=== PATIENT | female | born 1960 | race Caucasian/White ===

== ENCOUNTER 2017-10-13 04:22 | Observation (INO) | payer BC ==
[2017-10-13] VITALS (8 sets, daily range): BP systolic 133–169; BP diastolic 63–81; PULSE 61–80; RESP 16–18; TEMP 97.4–98.5; O2SAT 96–98
[~2017-10-13] VITALS: Ht 165.1 cm; Wt 75.6 kg
[2017-10-13] MEDS ORDERED: DOXY100C PO (04:48)
[2017-10-13] MEDS ORDERED: [UNRECOGNIZED DRUG - OTHER] SQ (04:48)
[2017-10-13] MEDS ORDERED: ESOM1CAP16 PO (04:48)
[2017-10-13] MEDS ORDERED: NOVOLOGP2 SQ (04:48)
[2017-10-13] MEDS ORDERED: SODIUM CHLOR 0.9% 1000 ML INJ 1,000 ML IV SCH (05:15)
[2017-10-13] MEDS ORDERED: SUCRALFATE 1 GM/10 ML CUP PO ONE (05:15)
[2017-10-13] MEDS ORDERED: SODIUM CHLORIDE 0.9% FLUSH 10 ML FLUSH IVF PRN (05:15)
[2017-10-13] MEDS ORDERED: NITROGLYCERIN 0.4 MG SL 25 TABS/BTL SL ONE ×2 (05:15→06:15)
[2017-10-13] MEDS ORDERED: METOCLOPRAMIDE HCL 10 MG/2 ML VIAL IV PUSH ONE (05:15)
[2017-10-13 05:21] LABS: AUTOMATED NEUTROPHIL # 3.6 TH/MM3 (1.8-7.7); BASOPHIL # 0.1 TH/MM3 (0-0.2); BASOPHIL % 0.8 % (0.0-2.0); EOSINOPHIL # 0.2 TH/MM3 (0-0.4); EOSINOPHIL % 3.4 % (0.0-4.0); HEMATOCRIT 41.6 % (35.0-46.0); LYMPH % 29.9 % (9.0-44.0); LYMPHOCYTE # 1.9 TH/MM3 (1.0-4.8); MEAN CELL VOLUME 90.4 FL (80.0-100.0); MEAN CORPUSCULAR HEMOGLOBIN 30.4 PG (27.0-34.0); MEAN CORPUSCULAR HGB CONC 33.7 % (32.0-36.0); MEAN PLATELET VOLUME 8.6 FL (7.0-11.0); MONO % 9.4 % (0.0-8.0); MONOCYTE # 0.6 TH/MM3 (0-0.9); NEUT % 56.5 % (16.0-70.0); PLATELET COUNT 214 TH/MM3 (150-450); RED CELL DISTRIBUTION WIDTH 11.7 % (11.6-17.2); WHITE BLOOD COUNT 6.4 TH/MM3 (4.0-11.0)
[2017-10-13 05:28] LABS: CHLORIDE 104 MEQ/L (98-107); SODIUM (NA) 137 MEQ/L (136-145)
[2017-10-13 05:32] LABS: ALBUMIN 3.6 GM/DL (3.4-5.0); BICARBONATE 27.9 MEQ/L (21.0-32.0)
[2017-10-13 05:33] LABS: BLOOD UREA NITROGEN 20 MG/DL (7-18); GLUCOSE,RANDOM 236 MG/DL (74-106); INTERNATIONAL NORMALIZED RATIO 0.9 RATIO; PROTHROMBIN TIME - PATIENT 9.6 SEC (9.8-11.6)
[2017-10-13 05:35] LABS: ALT (GPT) 14 U/L (10-53); AST (GOT) 12 U/L (15-37)
[2017-10-13 05:36] LABS: CREATININE 0.88 MG/DL (0.50-1.00); GLOMERULAR FILTRATION RATE 66 ML/MIN (>89)
[2017-10-13 05:37] LABS: TOTAL BILIRUBIN ADULT 0.3 MG/DL (0.2-1.0)
[2017-10-13 05:38] LABS: ALKALINE PHOSPHATASE 107 U/L (45-117)
[2017-10-13 05:41] LABS: TROPONIN I LESS THAN 0.02 NG/ML (0.02-0.05)
--- NOTE | 2017-10-13 05:42 | PD ---
HPI Chief Complaint: Foreign Body Time Seen by Provider: 05:04 Travel History International Travel<30 days: No Contact w/Intl Traveler<30days: No Traveled to known affect area: No History of Present Illness HPI 57-year-old female presents to the emergency department for component of esophageal spasm and retrosternal chest pain. Patient states she has history of GERD and esophageal spasm as well as history of diabetes. Patient states blood sugars have not been well controlled over the last few weeks she has been changed over surgery Triseba for diabetic control. Patient is concerned her medications may be inducing her symptoms especially as she was recently started on tetracycline for possible toe infection and prior history of MRSA/staph infections. Patient denies fever chills. Patient has had nausea without vomiting. Patient did take antacid prior to arrival to the emergency department. PFSH Past Medical History Narrative Medical Type 1 diabetes gerd cholecystectomy tonsillectomy hiatal hernia; no tobacco use; nursing notes reviewed Diabetes: Yes (TYPE 1) Patient Takes Glucophage: No Diminished Hearing: No Hiatal Hernia: Yes Immunizations Current: Yes Tetanus Vaccination: < 5 Years Influenza Vaccination: Yes ?: Not Menopausal: Yes Past Surgical History Section: Yes Cholecystectomy: Yes Tonsillectomy: Yes Social History Alcohol Use: No Tobacco Use: No Substance Use: No Allergies-Medications (Allergen,Severity, Reaction): Coded Allergies: Penicillins (Verified Allergy, Severe, Hives, 10/13/17) Sulfa (Sulfonamide Antibiotics) (Verified Allergy, Severe, Hives, 10/13/17) ethinyl estradiol (Verified Allergy, Severe, Hives, 10/13/17) norethindrone acetate (Verified Allergy, Severe, Hives, 10/13/17) ofloxacin (Verified Allergy, Severe, Hives, 10/13/17) Reported Meds & Prescriptions Reported Meds & Active Scripts Active Reported Esomeprazole DR 40 Mg Capdr 40 Mg PO DAILY Novolog Inj (Insulin Aspart) 1,000 Unit/10 Ml Vial 0 SQ DIRECTED Sliding Scale as directed. [Trasheba] 19 Units SQ DAILY Doxycycline Hyclate 100 Mg Cap 100 Mg PO BID Review of Systems Except as stated in HPI: all other systems reviewed are Neg General / Constitutional: No: Fever HENT: No: Congestion Cardiovascular: Positive: Chest Pain or Discomfort Respiratory: No: Shortness of Breath Gastrointestinal: Positive: Nausea, No: Vomiting, Abdominal Pain Genitourinary: No: Dysuria, Flank Pain Musculoskeletal: No: Myalgias, Arthralgias, Edema Skin: No Rash Neurologic: No: Weakness, Dizziness, Syncope Psychiatric: Positive: Anxiety Hematologic/Lymphatic: No: Lymph Node Enlargement Physical Exam Narrative GENERAL: Well-developed well-nourished no acute distress no respiratory distress SKIN: Warm and dry. HEAD: Normocephalic. EYES: No scleral icterus. No injection or drainage. NECK: Supple, trachea midline. No JVD or lymphadenopathy. CARDIOVASCULAR: Regular rate and rhythm without murmurs, gallops, or rubs. RESPIRATORY: Breath sounds equal bilaterally. No accessory muscle use. GASTROINTESTINAL: Abdomen soft, non-tender, nondistended. MUSCULOSKELETAL: No cyanosis, or edema. BACK: Nontender without obvious deformity. No CVA tenderness. Data Data Last Documented VS Vital Signs Date Time Temp Pulse Resp B/P (MAP) Pulse Ox O2 Delivery O2 Flow Rate FiO2 10/13/17 06:19 66 16 144/72 (96) 97 Room Air 10/13/17 04:27 98.5 Orders Orders Electrocardiogram (10/13/17 05:04) Ckmb (Isoenzyme) Profile (10/13/17 05:04) Complete Blood Count With Diff (10/13/17 05:04) Comprehensive Metabolic Panel (10/13/17 05:04) Magnesium (Mg) (10/13/17 05:04) Prothrombin Time / Inr (Pt) (10/13/17 05:04) Act Partial Throm Time (Ptt) (10/13/17 05:04) Troponin I (10/13/17 05:04) Lipase (10/13/17 05:04) Ecg Monitoring (10/13/17 05:04) Bilateral Bp Monitoring (10/13/17 05:04) Iv Access Insert/Monitor (10/13/17 05:04) Oximetry (10/13/17 05:04) Oxygen Administration (10/13/17 05:04) Sodium Chloride 0.9% Flush (Ns Flush) (10/13/17 05:15) Chest, Pa & Lat (10/13/17 05:04) Metoclopramide Inj (Reglan Inj) (10/13/17 05:15) Nitroglycerin Sl (Nitrostat Sl) (10/13/17 05:15) Sodium Chlor 0.9% 1000 Ml Inj (Ns 1000 M (10/13/17 05:15) Sucralfate Liq (Carafate Liq) (10/13/17 05:15) Ketorolac Inj (Toradol Inj) (10/13/17 06:00) Nitroglycerin Sl (Nitrostat Sl) (10/13/17 06:15) Morphine Inj (Morphine Inj) (10/13/17 07:00) Ondansetron Inj (Zofran Inj) (10/13/17 07:00) Admit Order (Ed Use Only) (10/13/17 ) Machine Egg Washer / Telemetry PATRICIA.Q8H (10/13/17 06:56) Diet 1999 Ada Cons Carb (10/13/17 Breakfast) Activity Oob With Assistance (10/13/17 06:56) Notify Dr: Other (10/13/17 06:56) Activity Bed Rest With Brp (10/13/17 06:56) Vital Signs (Adult) Q4H (10/13/17 06:56) Cardiac Rhythm .As Directed (10/13/17 06:56) Notify Dr: Other .PRN (10/13/17 06:56) Notify DrDorys Parameters (10/13/17 06:56) Resp Oxygen Nasal Cannula (10/13/17 ) Ckmb (Isoenzyme) Profile (10/13/17 08:00) Ckmb (Isoenzyme) Profile (10/13/17 11:00) Troponin I (10/13/17 08:00) Troponin I (10/13/17 11:00) Electrocardiogram (10/13/17 08:00) Electrocardiogram (10/13/17 11:00) ^ Obtain (10/13/17 06:56) Sodium Chloride 0.9% Flush (Ns Flush) (10/13/17 07:00) Sodium Chloride 0.9% Flush (Ns Flush) (10/13/17 09:00) Ondansetron Inj (Zofran Inj) (10/13/17 07:00) Famotidine (Pepcid) (10/13/17 09:00) Nitroglycerin Sl (Nitrostat Sl) (10/13/17 07:00) Machine Egg Washer / Telemetry PATRICIA.Q8H (10/13/17 06:56) Labs Laboratory Tests Test 10/13/17 05:11 White Blood Count 6.4 TH/MM3 Red Blood Count 4.60 MIL/MM3 Hemoglobin 14.0 GM/DL Hematocrit 41.6 % Mean Corpuscular Volume 90.4 FL Mean Corpuscular Hemoglobin 30.4 PG Mean Corpuscular Hemoglobin Concent 33.7 % Red Cell Distribution Width 11.7 % Platelet Count 214 TH/MM3 Mean Platelet Volume 8.6 FL Neutrophils (%) (Auto) 56.5 % Lymphocytes (%) (Auto) 29.9 % Monocytes (%) (Auto) 9.4 % Eosinophils (%) (Auto) 3.4 % Basophils (%) (Auto) 0.8 % Neutrophils # (Auto) 3.6 TH/MM3 Lymphocytes # (Auto) 1.9 TH/MM3 Monocytes # (Auto) 0.6 TH/MM3 Eosinophils # (Auto) 0.2 TH/MM3 Basophils # (Auto) 0.1 TH/MM3 CBC Comment DIFF FINAL Differential Comment Prothrombin Time 9.6 SEC Prothromb Time International Ratio 0.9 RATIO Activated Partial Thromboplast Time 24.9 SEC Blood Urea Nitrogen 20 MG/DL Creatinine 0.88 MG/DL Random Glucose 236 MG/DL Total Protein 7.0 GM/DL Albumin 3.6 GM/DL Calcium Level 9.0 MG/DL Magnesium Level 2.0 MG/DL Alkaline Phosphatase 107 U/L Aspartate Amino Transf (AST/SGOT) 12 U/L Alanine Aminotransferase (ALT/SGPT) 14 U/L Total Bilirubin 0.3 MG/DL Sodium Level 137 MEQ/L Potassium Level 3.9 MEQ/L Chloride Level 104 MEQ/L Carbon Dioxide Level 27.9 MEQ/L Anion Gap 5 MEQ/L Estimat Glomerular Filtration Rate 66 ML/MIN Total Creatine Kinase 100 U/L Troponin I LESS THAN 0.02 NG/ML Lipase 233 U/L MDM Medical Decision Making Medical Screen Exam Complete: Yes Emergency Medical Condition: Yes Medical Record Reviewed: Yes Interpretation(s) EKG normal sinus rhythm rate [address] elevation injury pattern or ectopy noted; poor R-wave progression septally CK: 100, not elevated; troponin I less than 0.02, not elevated CBC & BMP Diagram 10/13/17 05:11 Total Protein 7.0, Albumin 3.6, Calcium Level 9.0, Magnesium Level 2.0, Alkaline Phosphatase 107, Aspartate Amino Transf (AST/SGOT) 12 L, Alanine Aminotransferase (ALT/SGPT) 14, Total Bilirubin 0.3 Vital Signs Date Time Temp Pulse Resp B/P (MAP) Pulse Ox O2 Delivery O2 Flow Rate FiO2 10/13/17 05:34 165/81 (109) 10/13/17 05:31 80 16 165/81 (109) 96 Room Air 10/13/17 05:23 Room Air 10/13/17 05:23 Room Air 10/13/17 04:49 18 10/13/17 04:27 98.5 69 16 169/74 (105) CXR pa/lat: FINDINGS: PA and lateral views of the chest demonstrate the lungs to be symmetrically aerated without evidence of mass, infiltrate or effusion. The cardiomediastinal contours are unremarkable. Osseous structures are intact. CONCLUSION: No acute disease. Sebastian Liu MD on October 13, 2017 at 6:09 Board Certified Radiologist. This report was verified electronically. Differential Diagnosis Atypical chest pain, ACS, SD, esophageal spasm, retained esophageal foreign body , esophageal perforation, Sara-Yu tear, Boerhaave's Narrative Course Patient placed on keypunch operator IV access obtained specimens collections pattern patient administered IV fluids Reglan 10 mg IV sublingual nitroglycerin 0.4 mg sublingual 1 Lab values resulted and found to be grossly within normal range EKG no acute ST elevation or injury pattern Chest x-ray NAD @ 5:45 AM patient reports being symptomatically improved discomfort has moved to her epigastric location from her mid chest area. Patient reports decreased belching. Patient complains of headache post SL ntg x 1. Patient administered toradol 30 mg iv, SL ntg 0.4 mg (#2) At 615 patient resting comfortably states chest pain has diminished after nitroglycerin; aware of plan for observation admission for chest pain center protocol; suspect that majority of symptoms are related to esophageal spasm with history of GERD and hiatal hernia however in since age and type 1 diabetes with no prior evaluation of cardiac disease or stress test recommend observation admission. Patient is agreeable. Patient's case discussed with [facility] MD --[facility]BS per [facility] protocol; may require GI referral after rule out and will d/c doxycycline Physician Communication Physician Communication discussed with Dr Baron for OBS Diagnosis Primary Impression: Chest pain Additional Impression: H/O gastroesophageal reflux (GERD) Admitting Information Admitting Physician Requests: Observation Cornelia Matos MD Oct 13, 2017 05:42
[2017-10-13] MEDS ORDERED: KETOROLAC TROMETHAMINE 30 MG/ML (IVP) VIAL IV PUSH ONE (06:00)
--- NOTE | 2017-10-13 06:11 | RADRPT ---
EXAM DATE/TIME: 10/13/2017 05:19 [facility] COMPARISON: No previous studies available for comparison. INDICATIONS : Chest pain. MEDICAL HISTORY : Diabetes mellitus type I. SURGICAL HISTORY : Cholecystectomy. section. ENCOUNTER: Initial ACUITY: 1 day PAIN SCORE: 8/10 LOCATION: Bilateral chest FINDINGS: PA and lateral views of the chest demonstrate the lungs to be symmetrically aerated without evidence of mass, infiltrate or effusion. The cardiomediastinal contours are unremarkable. Osseous structure s are intact. CONCLUSION: No acute disease. Sebastian Liu MD on October 13, 2017 at 6:09 Board Certified Radiologist. This report was verified electronically.
[2017-10-13] MEDS ORDERED: MORPHINE SULFATE 2 MG/ML INJ IV PUSH ONE (07:00)
[2017-10-13] MEDS ORDERED: REGADENOSON INJ 0.4 MG/5 ML SYR IV ONE (07:00)
[2017-10-13] MEDS ORDERED: NITROGLYCERIN 0.4 MG SL 25 TABS/BTL SL PRN (07:00)
[2017-10-13] MEDS ORDERED: ONDANSETRON HCL 4 MG/2 ML VIAL IV PUSH PRN (07:00)
[2017-10-13] MEDS ORDERED: ONDANSETRON HCL 4 MG/2 ML VIAL IV PUSH ONE (07:00)
[2017-10-13] MEDS ORDERED: SODIUM CHLORIDE 0.9% FLUSH 10 ML FLUSH IV FLUSH PRN (07:00)
[2017-10-13] MEDS ORDERED: DEXTROSE 50% IN WATER 50 ML VIAL(D50) IV PUSH PRN (07:15)
[2017-10-13] MEDS ORDERED: GLUCAGON 1 MG/ML VIAL OTHER PRN (07:15)
--- NOTE | 2017-10-13 08:32 | HHI.HP ---
HPI Service [place] [facility] Primary Care Physician Non-Staff Admission Diagnosis Chest pain Diagnoses: (1) Chest pain Diagnosis: Principal Chief Complaint: Esophageal/chest pain Travel History International Travel<30 Days: No Contact w/Intl Traveler <30 Da: No Traveled to Known Affected Are: No History of Present Illness 57-year-old female with rather significant gastroesophageal reflux, history of esophageal strictures status post dilatation, diabetes who presented to the emergency department for evaluation of epigastric/chest discomfort. Patient is down visiting her daughter from [place] and last night she took her antibiotic at approximately 11 PM. She states that she felt as if the pill got stuck in her esophagus and she started developing a burning sensation in the middle part of her chest. She drank extra water to try to clear it however did not improve. She usually sleeps sitting up because of her gastroesophageal reflux, she did lay down but at midnight she states that she started developing worsening sensation in her epigastric/mid chest area. She described it as a rolling discomfort that got up to 9/10 on a pain scale that remained constant. She states the pain worsened whenever she moved her arms. She denied any radiation to the neck, back, shoulder, arm. She denied any nausea, vomiting, diaphoresis, shortness of breath, dyspnea, lightheadedness, dizziness. Because the pain did not go away she came to emergency department for evaluation. Patient was given nitroglycerin 2 in the emergency department with minimal relief of her discomfort. Because of her underlying risk factors it was recommended by the ER physician that the patient be observed in the hospital in the chest pain center to rule out for any acute coronary event. Review of Systems Cardiovascular: COMPLAINS OF: Chest pain Gastrointestinal: COMPLAINS OF: Abdominal pain Except as stated in HPI: all other systems reviewed are Neg Past Family Social History Past Medical History Chronic gastroesophageal reflux History of esophageal stricture Diabetes Past Surgical History Tonsillectomy Cholecystectomy EGD with esophageal dilatation Reported Medications Reported Meds & Active Scripts Active Reported Esomeprazole DR 40 Mg Capdr 40 Mg PO DAILY Novolog Inj (Insulin Aspart) 1,000 Unit/10 Ml Vial 0 SQ DIRECTED Sliding Scale as directed. [Trasheba] 19 Units SQ DAILY Doxycycline Hyclate 100 Mg Cap 100 Mg PO BID Allergies: Coded Allergies: Penicillins (Verified Allergy, Severe, Hives, 10/13/17) Sulfa (Sulfonamide Antibiotics) (Verified Allergy, Severe, Hives, 10/13/17) ethinyl estradiol (Verified Allergy, Severe, Hives, 10/13/17) norethindrone acetate (Verified Allergy, Severe, Hives, 10/13/17) ofloxacin (Verified Allergy, Severe, Hives, 10/13/17) Family History Family history was reviewed and significant for mother alive at age 77 with diabetes, father alive in his 80s with myasthenia gravis. No indication of any heart disease, lung disease, kidney disease, stroke, seizures Physical Exam Vital Signs Vital Signs Date Time Temp Pulse Resp B/P (MAP) Pulse Ox O2 Delivery O2 Flow Rate FiO2 10/13/17 07:05 61 16 138/68 (91) 98 Room Air 10/13/17 06:19 66 16 144/72 (96) 97 Room Air 10/13/17 05:34 165/81 (109) 10/13/17 05:31 80 16 165/81 (109) 96 Room Air 10/13/17 05:23 Room Air 10/13/17 05:23 Room Air 10/13/17 04:49 18 10/13/17 04:27 98.5 69 16 169/74 (105) Physical Exam GENERAL: Well-developed, well-nourished, in no acute distress. alert and orientated HEENT: Head is normocephalic without any lesions or masses noted. Facial features are symmetric. Eyes: Pupils equal round reactive to light. Extraocular muscles are intact. Conjunctivae were clear. Oropharyngeal: Pharynx without any erythema edema. Tongue is midline without deviation. Buccal mucosa is moist without any masses or lesions NECK: Supple without any masses. Trachea midline no deviation. No JVD, no bruits are appreciated CARDIAC: Regular rhythm, regular rate. S1/S2 are heard. No murmurs gallops or rubs. LUNGS: Clear to auscultation bilaterally. No wheeze, rhonchi or rales. No use of accessory muscles on inspiration or expiration. ABDOMEN: Soft, nontender. Nondistended. Bowel sounds heard in all 4 quadrants. No organomegaly or masses. Negative rebound, negative guarding EXTREMITIES: No edema, pulses are equal bilaterally. No cyanosis or clubbing NEUROLOGY: Mood and affect appear appropriate. Cranial nerves II through XII grossly intact. Muscle strength 5/5 in upper and lower extremities bilaterally. Deep tendon reflexes are 2+ in upper and lower extremities bilaterally. Laboratory Laboratory Tests Test 10/13/17 05:11 White Blood Count 6.4 Red Blood Count 4.60 Hemoglobin 14.0 Hematocrit 41.6 Mean Corpuscular Volume 90.4 Mean Corpuscular Hemoglobin 30.4 Mean Corpuscular Hemoglobin Concent 33.7 Red Cell Distribution Width 11.7 Platelet Count 214 Mean Platelet Volume 8.6 Neutrophils (%) (Auto) 56.5 Lymphocytes (%) (Auto) 29.9 Monocytes (%) (Auto) 9.4 Eosinophils (%) (Auto) 3.4 Basophils (%) (Auto) 0.8 Neutrophils # (Auto) 3.6 Lymphocytes # (Auto) 1.9 Monocytes # (Auto) 0.6 Eosinophils # (Auto) 0.2 Basophils # (Auto) 0.1 CBC Comment DIFF FINAL Differential Comment Prothrombin Time 9.6 Prothromb Time International Ratio 0.9 Activated Partial Thromboplast Time 24.9 Blood Urea Nitrogen 20 Creatinine 0.88 Random Glucose 236 Total Protein 7.0 Albumin 3.6 Calcium Level 9.0 Magnesium Level 2.0 Alkaline Phosphatase 107 Aspartate Amino Transf (AST/SGOT) 12 Alanine Aminotransferase (ALT/SGPT) 14 Total Bilirubin 0.3 Sodium Level 137 Potassium Level 3.9 Chloride Level 104 Carbon Dioxide Level 27.9 Anion Gap 5 Estimat Glomerular Filtration Rate 66 Total Creatine Kinase 100 Troponin I LESS THAN 0.02 Lipase 233 Result Diagram: 10/13/17 0511 10/13/17 0511 Imaging Last Impressions Chest X-Ray 10/13/17 0504 Signed Impressions: Service Date/Time: Friday, October 13, 2017 05:19 - CONCLUSION: No acute disease. MD Radha Neri VTE Risk Assessment Radha VTE Risk Assessment: No/Low Risk (score <= 1) Caprini Risk Assessment Model Point Value = 1 Point Value = 2 Point Value = 3 Point Value = 5 Age 41-60 Minor surgery BMI > 25 kg/m2 Swollen legs Varicose veins or History of unexplained or recurrent spontaneous Oral contraceptives or hormone replacement Sepsis (< 1 month) Serious lung disease, including pneumonia (< 1 month) Abnormal pulmonary function Acute myocardial infarction Congestive heart failure (< 1 month) History of inflammatory bowel disease Medical patient at bed rest Age 61-74 Arthroscopic surgery Major open surgery (> 45 min) Laparoscopic surgery (> 45 min) Malignancy Confined to bed (> 72 hours) Immobilizing plaster cast Central venous access Age >= 75 History of VTE Family history of VTE Factor V Leiden Prothrombin [id number] Lupus anticoagulant Anticardiolipin antibodies Elevated serum homocysteine Heparin-induced thrombocytopenia Other congenital or acquired thrombophilia Stroke (< 1 month) Elective arthroplasty Hip, pelvis, or leg fracture Acute spinal cord injury (< 1 month) Prophylaxis Regimen Total Risk Factor Score Risk Level Prophylaxis Regimen 0-1 Low Early ambulation 2 Moderate Order ONE of the following: *Sequential Compression Device (SCD) *Heparin 5000 units SQ BID 3-4 Higher Order ONE of the following medications: *Heparin 5000 units SQ TID *Enoxaparin/Lovenox 40 mg SQ daily (WT < 150 kg, CrCl > 30 mL/min) *Enoxaparin/Lovenox 30 mg SQ daily (WT < 150 kg, CrCl > 10-29 mL/min) *Enoxaparin/Lovenox 30 mg SQ BID (WT < 150 kg, CrCl > 30 mL/min) AND/OR *Sequential Compression Device (SCD) 5 or more Highest Order ONE of the following medications: *Heparin 5000 units SQ TID (Preferred with Epidurals) *Enoxaparin/Lovenox 40 mg SQ daily (WT < 150 kg, CrCl > 30 mL/min) *Enoxaparin/Lovenox 30 mg SQ daily (WT < 150 kg, CrCl > 10-29 mL/min) *Enoxaparin/Lovenox 30 mg SQ BID (WT < 150 kg, CrCl > 30 mL/min) AND *Sequential Compression Device (SCD) Assessment and Plan Assessment and Plan Chest pain, atypical Patient with increased risk factors to include age, postmenopausal without exogenous hormones, diabetes Patient ruled out for acute coronary event with serial cardiac enzymes are negative Serial EKGs were reviewed by myself and shows sinus rhythm without any changes Patient unable to perform exercise stress test due to plantar fasciitis, diabetic foot wound. Myocardial perfusion study was performed and indicated no reversible ischemia , low risk Continue aspirin, nitroglycerin as needed Chronic gastroesophageal reflux with history of esophageal stricture Pepcid 20 mg twice daily Patient will need to follow-up with her senior benefits manager in [place] [facility] with sliding scale insulin DVT prevention Low risk, early ambulation Discharge disposition Discharge home in stable condition Activity: Ad jabari. Diet: Diabetic diet Medication per medication reconciliation Follow-up with primary medical doctor in 1 week Jorge Ramirez Oct 13, 2017 08:32
[2017-10-13 08:50] LABS: TROPONIN I LESS THAN 0.02 NG/ML (0.02-0.05)
[2017-10-13] MEDS ORDERED: SODIUM CHLORIDE 0.9% FLUSH 10 ML FLUSH IV FLUSH SCH (09:00)
[2017-10-13] MEDS ORDERED: FAMOTIDINE 20 MG TAB PO SCH (09:00)
[2017-10-13] MEDS: INSULIN ASPART SUPPLEMENTAL SCALE SQ SCH ×2 (09:00→12:00)
[2017-10-13 11:15] LABS: TROPONIN I LESS THAN 0.02 NG/ML (0.02-0.05)
--- NOTE | 2017-10-13 11:24 | EKG ---
Date Performed: 10/13/2017 Time Performed: 05:33:52 PTAGE: 57 years EKG: Sinus rhythm Poor R wave progression NO PREVIOUS TRACING DOCTOR: Lavon Jones Interpretating Date/Time 10/13/2017 11:23:50
--- NOTE | 2017-10-13 11:24 | EKG ---
Date Performed: 10/13/2017 Time Performed: 10:42:37 PTAGE: 57 years EKG: Sinus rhythm Poor R wave progression ABNORMAL ECG PREVIOUS TRACING : 10/13/2017 08.35 Since previous tracing, no significant change noted DOCTOR: Lavon Jones Interpretating Date/Time 10/13/2017 11:22:59
--- NOTE | 2017-10-13 11:38 | EKG ---
Date Performed: 10/13/2017 Time Performed: 08:35:29 PTAGE: 57 years EKG: SINUS BRADYCARDIA Poor R wave progression ABNORMAL ECG PREVIOUS TRACING : 10/13/2017 05.33 Since previous tracing, no significant change noted DOCTOR: Lavon Jones Interpretating Date/Time 10/13/2017 11:38:07
--- NOTE | 2017-10-13 12:28 | RADRPT ---
EXAM DATE/TIME: 10/13/2017 10:24 [facility] COMPARISON: No previous studies available for comparison. INDICATIONS : Retrosternal chest pain with nausea. Angina. DOSE: 27.3 mCi Tc99m Myoview at stress. 8.8 mCi Tc99m Myoview at rest. 0.4 mg Lexiscan STRESS SYMPTOMS: Leg cramping, headache and stomach cramping. EJECTION FRACTION: 62% MEDICAL HISTORY : Diabetes mellitus type 2. Gastroesophageal reflux disease. Hernia, hiatal. SURGICAL HISTORY : Cholecystectomy. ENCOUNTER: Initial ACUITY: 1 day PAIN SCALE: 7/10 LOCATION: Retrosternal chest TECHNIQUE: The patient underwent pharmacologic stress with infusion of prescribed dose. Continuous ECG tracing was monitored during stress. Gated SPECT imaging was performed after stress and conventional SPECT i maging was performed at rest. The examination was performed on a SPECT/CT scanner, both attenuation and non-corrected datasets were reviewed. FINDINGS: DISTRIBUTION: The maximum perfused segment at stress is in the anterior lateral wall. PERFUSION STUDY: The pattern of perfusion at stress is within normal limits. GATED STUDY: There is intact wall motion and thickening without hypokinetic or dyskinetic segments. CONCLUSION: 1. No fixed or reversible wall defects to suggest ischemia or infarction. 2. Normal wall motion and calculated ejection fraction. RISK CATEGORY: Low (<1% Annual Mortality Rate) Nicholas Doll MD on October 13, 2017 at 12:24 Board Certified Radiologist. This report was verified electronically.
--- NOTE | 2017-10-13 12:32 | HHI.DCPOC ---
Discharge Care Plan Diagnosis: (1) Chest pain Goals to Promote Your Health * To prevent worsening of your condition and complications * To maintain your health at the optimal level Directions to Meet Your Goals Take your medications as prescribed Follow your dietary instruction Follow activity as directed Keep your appointments as scheduled Take your immunizations and boosters as scheduled If your symptoms worsen call your PCP, if no PCP go to Urgent Care Center or Emergency Room Smoking is Dangerous to Your Health. Avoid second hand smoke Call the 24-hour hour crisis hotline for domestic abuse at Jorge Ramirez Oct 13, 2017 12:32
--- NOTE | 2017-10-13 14:22 | TR ---
Date Performed: 10/13/2017 Time Performed: 11:14:45 DOCTOR: Lavon Jones DRUG LIST: CLINICAL HISTORY: REASON FOR TEST: Chest pain REASON FOR ENDING: OBSERVATION: CONCLUSION: Lexiscan stress test was performed under standard four minute protocol. Radionuclid e was injected one minute prior to ending the test. No electrocardiographic abormalities were present to suggest ischemia. Nuclear imaging and interpretation are pending. COMMENTS:
== END 2017-10-13 13:08 | disposition home or self-care (01) ==
LOC: PHED 04:22 → PHEDA 06:59 → PH3A 09:00
PROVIDERS: ADMIT Hospitalist; ATTEND Hospitalist
DX: R07.89 Other chest pain (principal); K21.9 Gastro-esophageal reflux disease without esophagitis; K22.4 Dyskinesia of esophagus; E10.9 Type 1 diabetes mellitus without complications; K44.9 Diaphragmatic hernia without obstruction or gangrene; Z79.4 Long term (current) use of insulin; Z79.899 Other long term (current) drug therapy; R94.31 Abnormal electrocardiogram [ECG] [EKG]; R00.1 Bradycardia, unspecified
CPT/HCPCS: 71046; 78452; 80053; 82550; 82948; 83690; 83735; 84484; 85025; 85610; 85730; 93005; 93017; 96361; 96374; 96376; 99285; A9502; G0378; J1885; J2765; J2785; J7030